=== PATIENT | male | born 1950 | race Caucasian/White ===

== ENCOUNTER 2025-01-27 15:04 | Outpatient (CLI) | payer MEDICARE, SELFPAY ==
--- NOTE | 2025-01-27 13:30 | DI.RAD_ITS ---
Exam(s) XR KNEE RT 3V AP,LAT,GURINDER EXAM: XR KNEE RT 3V AP,LAT,GURINDER CLINICAL HISTORY: knee/hip pain. TECHNIQUE: 2D digital imaging was performed. COMPARISON: Outside institution right knee images of 02/27/2024 FINDINGS: 3 views There is stable position of the revision-type right knee prosthesis components. There is a linear lucency subjacent to aspect of the tibial plateau component but this appears similar to previous. There is no lucency around the remainder of the tibial component and stem nor around the femoral component. On the lateral view there is some dystrophic calcification again noted posteriorly. IMPRESSION: As above but without significant radiographic change compared to outside images of 02/27/2024. DATA REPOSITORY: RADIATION DOSE DELIVERED:
--- NOTE | 2025-01-27 13:30 | DI.RAD_ITS ---
Exam(s) XR HIP RT COMPLETE AP PELVIS EXAM: XR HIP RT COMPLETE AP PELVIS CLINICAL HISTORY: knee/hip pain. TECHNIQUE: 2D digital imaging was performed. COMPARISON: No exams were available for comparison FINDINGS: 3 views No evidence of pelvic nor hip fracture. Left hip prosthesis is noted and appears satisfactory. There are mild degenerative changes in the right hip joint. No osseous lesions. IMPRESSION: No acute osseous findings. Left hip prosthesis Mild degenerative changes in the right hip joint. DATA REPOSITORY: RADIATION DOSE DELIVERED:
== END 2025-01-27 15:05 | disposition home or self-care (01) ==
LOC: DIORS 15:04
PROVIDERS: PCP Family Medicine; Referring Provider Family Medicine; Visit Provider Student in an Organized Health Care Education/Training Program
DX: T84.84XA Pain due to internal orthopedic prosthetic devices, implants and grafts, initial encounter (principal); M25.561 Pain in right knee; M16.11 Unilateral primary osteoarthritis, right hip
CPT/HCPCS: 20611; 73562; 99204; J1010; 73502

== ENCOUNTER 2025-02-08 09:27 | Day surgery (SDC) | payer MEDICARE, SELFPAY ==
[2025-02-08] VITALS (22 sets, daily range): BP systolic 75–150; BP diastolic 36–78; PULSE 51–65; RESP 11–29; TEMP 36.1–36.6; O2SAT 94–100; BMI 27.2
--- NOTE | 2025-02-08 07:22 | PDOC.DSDIS_ITS ---
Date of service: 02/08/25 Discharge Plan Disposition Patient Disposition: Home Condition: Good Discharge Details Reason For Visit: Right TKA Arthrofibrosis Attending Provider: Jt Lynch Primary Care Provider: Richard Adames Home Meds and New Rx's Prescriptions: New hydrocodone-acetaminophen 5-325 mg tablet 1 tab PO Q6H PRN (Reason: severe pain) Qty: 6 0RF Rx Instructions: Take one tablet up to every 6 hours as needed for severe postoperative pain acetaminophen 500 mg tablet 500 mg PO Q6H PRN (Reason: pain) Qty: 60 2RF ibuprofen 600 mg tablet 600 mg PO TID PRN (Reason: pain) Qty: 60 0RF Continued brimonidine 0.2 % drops 1 drp ophthalmic (eye) BID lisinopril 20 mg tablet 40 mg PO DAILY sildenafil [Viagra] 100 mg tablet 100 mg PO DAILY PRN Rx Instructions: administer 30 minutes to 4 hours before activity Discharge Instructions Stand Alone Forms: [facility] Knee Arthroscopy, Portal Information Referrals: Jt Lynch MD [ [facility] STAFF PHYSICIAN, Orthopaedic Surgical] Equipment/Supplies: Partial Weight Bearing Crutches Activity:: Elevate Remove Dressings/Wound Care:: 48 hours Shower/Bathe:: 48 hours Diet:: As Tolerated Discharge Orders Discharge Orders: Discharge Order (Routine); Ordered 02/08/25 Ordered By: Italia Ortez
[2025-02-08] MEDS: Celecoxib 200 MG CAP 400 MG PO (10:25)
[2025-02-08] MEDS: Acetaminophen 500 MG TAB 1000 MG PO (10:25)
[2025-02-08] MEDS: Lactated Ringers 1,000 ML 80 ML IV (10:42)
--- NOTE | 2025-02-08 10:56 | W.ANESPRE ---
General Info Date of Service Date Performed: 02/08/25 Height: 5 ft 11 in Weight: 88.6 kg Body Mass Index (BMI): 27.2 Surgical Procedure: Operation Date: 02/08/25 12:25 Proposed Procedure Side Surgeon p Knee Arthroscopy, Synovectomy Right Jt Lynch MD Meds Allergies and Home Medications Allergies Allergy/AdvReac Type Severity Reaction Status Date / Time No Known Allergies Allergy Verified 02/08/25 10:06 Home Medication ?Medication ?Instructions ?Recorded brimonidine 0.2 % eye drops 1 drp ophthalmic (eye) BID 11/17/24 lisinopril 20 mg tablet 40 mg PO DAILY 11/17/24 sildenafil 100 mg tablet (Viagra) 100 mg PO DAILY PRN 11/17/24 acetaminophen 500 mg tablet 500 mg PO Q6H PRN pain #60 tabs 02/08/25 hydrochlorothiazide 12.5 mg tablet 12.5 mg PO DAILY 02/08/25 hydrocodone 5 mg-acetaminophen 325 1 tab PO Q6H PRN severe pain #6 02/08/25 mg tablet tabs ibuprofen 600 mg tablet 600 mg PO TID PRN pain #60 tabs 02/08/25 prednisolone acetate 1 % eye drp 02/08/25 drops,suspension Current Visit Medications: Current Medications Generic Name Dose Route Start Last Admin Trade Name Freq PRN Reason Stop Dose Admin Acetaminophen 1,000 mg 02/08/25 06:00 02/08/25 10:25 Acetaminophen 500 Mg Tab PO 02/08/25 23:59 1,000 mg PREOP CATHRYN Administration Acetaminophen 650 mg 02/08/25 07:21 Acetaminophen 325 Mg Tab PO 03/10/25 07:20 Q4H PRN PRN Hydrocodone Bitart/Acetaminophen 0 tab 02/08/25 07:21 Hydrocodone 5/Acetaminophen 325 Tab PO 03/10/25 07:20 Q3H PRN PRN Pain Celecoxib 400 mg 02/08/25 06:00 02/08/25 10:25 Celecoxib 200 Mg Cap PO 02/08/25 23:59 400 mg PREOP CATHRYN Administration Ringer's Solution 1,000 mls @ 80 mls/hr 02/08/25 06:00 02/08/25 10:42 IV 02/08/25 23:59 80 mls/hr INFUSION CATHRYN Administration Cefazolin Sodium/Dextrose 2 gm in 50 mls @ 100 mls/hr 02/08/25 06:00 Ancef Duplex IVPB 02/08/25 23:59 PREOP CATHRYN Tranexamic Acid/Sodium Chloride 1,000 mg in 100 mls @ 600 mls/hr 02/08/25 06:00 IVPB 02/08/25 23:59 PREOP CATHRYN Sodium Chloride 0 ml 02/08/25 06:00 Normal Saline Flush 10 Ml Syr IV 02/08/25 23:59 PRN PRN Sodium Chloride 0 ml 02/08/25 06:00 Normal Saline 10 Ml Vial IJ 02/08/25 23:59 DIRECTED PRN Sterile Water 0 ml 02/08/25 06:00 Water,Injection,Sterile 10 Ml Vial IJ 02/08/25 23:59 DIRECTED PRN PFSH Active Problems Active Problems: Problem Status Onset Code Arthrofibrosis of total knee arthroplasty Acute T84.82XA Painful total knee replacement, right Acute T84.84XA, Z96.651 Osteoarthritis of right hip Acute M16.11 Prostate CA Chronic C61 Hypertension Chronic I10 Surgical History Surgical History History of revision of total replacement of right knee joint (09/09/22) History of total right knee replacement (TKR) (2004) Tobacco Smoking/Tobacco Use Status: Never Passive smoking exposure: No Alcohol Alcohol Intake: current Alcohol intake frequency: a few times a month Alcohol type: beer Substance Use Substance use type: does not use Vital Signs and Lab Results Vital Signs Most Recent Vital Signs in EMR: Most Recent Vital Signs Temp Pulse Resp BP Pulse Ox 36.6 C 65 16 150/70 H 100 02/08/25 10:19 02/08/25 10:19 02/08/25 10:19 02/08/25 10:19 02/08/25 10:19 Anesthesia Assessment and Plan Anesthesia History Personal History: No History of Anesthesia Complications Family History: No Family History of Anesthesia Complications Exercise Tolerance Exercise Tolerance: Metabolic Equivalents>4 Pertinent Negatives Pertinent Negatives: No Symptoms of GERD Cardiac & Pulmonary Exam Cardiac Exam: Normal S1/S2 Heart Sounds Pulmonary Exam: Clear Bilateral Breath Sounds Implantable Cardiac Device Does patient have a Pacemaker or an ICD?: No Airway Exam Known Difficult Airway: No Mallampati Class: 1 Mouth Opening: Normal (> 3cm) Thyromental Distance: Greater than 3 cm Neck Range of Motion: Full ROM Neck Circumference: Normal Teeth Condition: Normal Dentition ASA Classification ASA Score: ASA 2 Emergency Case?: No NPO Status NPO Status: NPO Clears >2 hours, Solids >8 hours Anesthesia Plan Resuscitation Status: Full Code Anesthesia Technique: General Anesthesia Airway Planned: LMA Monitors Used: Standard Monitors
[2025-02-08] MEDS: ceFAZolin 2 GM/50 ML BAG IVPB (11:32)
[2025-02-08] MEDS: TRANEXAMIC ACID/SOD. CHL. 1,000 MG/100 ML BAG 600 MG IVPB (11:40)
[2025-02-08] MEDS: Bupivacaine 0.25% Pres-Free 30 ML VIAL (11:53)
[2025-02-08] MEDS: EPINEPHrine 10 MG/10 ML ML (11:53)
[2025-02-08] MEDS: ePHEDrine 25 MG/5 ML Syringe IVP (12:30)
--- NOTE | 2025-02-08 13:01 | W.ANESPOSTOP ---
Postoperative Evaluation Date, Time and Location Date Performed: 02/08/25 Time Performed: 13:01 Patient Location: PACU Vital Signs Most Recent Imported Vital Signs: Most Recent Vital Signs Temp Pulse Resp BP Pulse Ox 36.4 C L 54 L 15 134/61 99 02/08/25 12:52 02/08/25 12:56 02/08/25 12:56 02/08/25 12:55 02/08/25 12:56 Pain Score Most Recent Pain Score: Most Recent Pain Score Pain Level 2 02/08/25 12:29 Assessment Mental Status: Awake (Alert & Oriented to Patient Baseline) Airway and Respiratory Function: Patent airway with normal (patient baseline) respiratory exam Cardiovascular Function: Hemodynamically Stable Hydration Status: Adequately Hydrated Nausea & Vomiting: No Nausea or Vomiting Pain: Pain is tolerable per patient Peripheral Nerve Block: Patient did not receive a nerve block
--- NOTE | 2025-02-08 14:18 | ROE_ITS ---
Operative Note Operative Note PRE-OP DIAGNOSIS: Arthrofibrosis of Knee Replacement - RIGHT Knee POST-OP DIAGNOSIS: same PROCEDURE: Arthroscopic Synovectomy of 3 Compartments with Manipulation - Right Knee SURGEON: Jt Lynch ANESTHESIA TYPE: General LMA/ETT Refer to Anesthesia Record ESTIMATED BLOOD LOSS: 5 PATHOLOGY: none sent COMPLICATIONS: None Patient was transported to: PACU Patient's condition: stable Indications: I have seen Eleuterio in clinic for symptoms of arthrofibrosis of the knee following knee replacement surgery. Nonoperative measures were exhausted but disability due to lack of motion persisted. I discussed knee arthroscopy with synovectomy with maniuplation with the patient. I reviewed the risks of the procedure to include, but not limited to, bleeding, infection, pain, continued stiffness, recurrence, blood clot. Despite these risks, the patient elected to proceed. Findings: Preoperative Range of Motion: Flexion: 85 Extension:5 Postoperative Range of Motion: Flexion:110 Extension:5 Procedure Description: Eleuterio was greeted in the preoperative holding area where the correct side was identified and marked. The consent was reviewed with the patient and signed. The history and physical was updated. All questions were answered. He was taken back to the operating room. The patient was placed into the supine position on the operating room table. All bony prominences were well padded. Prophylactic antibiotics in the form of Cefazolin were administered. Preoperative range of motion was assessed as 5 - 85. The right leg was then prepped with Chloraprep and draped in a standard fashion with stockinette and extremity drape. A timeout to confirm correct identity, side and site, procedure, allergies, anesthesia, and medical concerns was performed. The leg was placed into a pneumatic leg spann, [id number]. A standard lateral portal was made at the lateral border of the patella tendon in line with the inferior pole of the patella, soft spot. The skin and deep tissue was incised sharply and the blunt trochar was inserted atraumatically. At this point had visualization of the femoral component. A superolateral portal was then established with spinal needle localization just superior and lateral to the patella. A knife was taken down through the skin and soft tissue to enter the knee joint. Starting in the superior compartment above the femoral component and anterior to the femur I released all scarring between the anterior femoral synovium and the overlying extensor mechanism. This was taken through all of any noticeable scar tissue until the superior patellar pouch was fully released and mobile. This resection was carried out mostly with electrocautery as well as shaver. Once this was released fully from lateral to medial superiorly I then continue working down the lateral gutter. All scar tissue in the lateral gutter was released so there is normal space and movement between the capsular tissues and the edge of the femoral component and femur. This was taken down through the lateral gutter such that I was able to identify the polyethylene to its posterior corner. Once again, all scar tissue in this area was resected so the polyethylene was easily visible and there is no interposed tissue in the back or the polyethylene was identified. This tissue was quite sick throughout the knee. Shaver was then utilized to remove some of this material. I then continued to work anteriorly. To continue the synovectomy from the lateral compartment to the anterior compartment into the medial compartment, I placed a medial portal under spinal needle localization. Once this was in place it becam e another working portal and I continued the synovectomy through the anterior compartment to the medial compartment. Once again, I freed up the medial gutter so I was able to visualize the polyethylene from the anterior posterior margins. There is no interposed tissue after full synovectomy was performed. Adhesions between the capsule and the femur were released. This was continued up the medi al gutter until it met up with the releases performed previously in the superior compartment. Any remnant scar tissue from around the patella was then removed with a shaver and electrocautery. The arthroscope was brought back into the suprapatellar pouch and the leg was in full extension. The knee was thoroughly irrigated with the arthroscopic fluid on high flow and pressure. Inflow was stopped and excess fluid was removed. The leg was removed from the spider leg spann and manipulation was performed. I first push the knee into flexion and was able to obtain 110 degrees. I then worked the knee into extension, slowly applying an anterior to posterior directed pressure with support of the knee and no significant lever arm. This was cycled multiple times until I was able to obtain extension of 5 degrees. The wounds were closed with 4-0 Nylon. 0.25% bupivacaine was injected around the portal sites and into the knee. The wounds were dressed with Xeroform, 4x4 gauze, ABD pad, Kerlix and an SANDY wrap. A cryo-cuff was applied. The patient tolerated the procedure well and was returned to the PACU in a stable condition suffering no known complication.. Date of Procedure: 02/08/25
== END 2025-02-08 14:27 | disposition home or self-care (01) ==
LOC: SUR 09:28
PROVIDERS: PCP Family Medicine; Visit Provider Student in an Organized Health Care Education/Training Program
PROC: (CPT 29870; principal; 2025-02-08 12:15)
DX: T84.82XA Fibrosis due to internal orthopedic prosthetic devices, implants and grafts, initial encounter (principal); T84.84XA Pain due to internal orthopedic prosthetic devices, implants and grafts, initial encounter; Z96.651 Presence of right artificial knee joint; I10 Essential (primary) hypertension; Z79.899 Other long term (current) drug therapy
CPT/HCPCS: 29876; J0330; J0665; J0690; J1100; J2405; J2704

== ENCOUNTER → 2025-02-21 09:38 | Outpatient (BNVA) | payer MEDICARE, SELFPAY | PROVIDERS: PCP Family Medicine; Referring Provider Family Medicine; Visit Provider Physician Assistant | DX: T84.84XA Pain due to internal orthopedic prosthetic devices, implants and grafts, initial encounter (principal); T84.82XA Fibrosis due to internal orthopedic prosthetic devices, implants and grafts, initial encounter | CPT/HCPCS: 99024 ==